=== PATIENT | female | born 1955 | race Caucasian/White ===

== ENCOUNTER 2016-08-29 04:26 | Emergency (ER) | payer MEDICAID, OTHER ==
[~2016-08-29] VITALS: Ht 162.6 cm; Wt 85.5 kg
[~2016-08-29 04:26] MED LIST: ALBU8.5H3 INH; DILT180C75 PO; DILT180C76 PO
[2016-08-29 04:33] VITALS: Ht 162.6 cm; Wt 85.5 kg
[2016-08-29] MEDS ORDERED: IPRATROPIUM (NEB) 0.5 MG/2.5 ML AMP NEB STA (04:48)
[2016-08-29] MEDS ORDERED: METHYLPREDNISOLONE 125 MG INJ IM STA (04:48)
[2016-08-29] MEDS ORDERED: ALBUTEROL 0.5% (NEB) 2.5 MG/0.5 ML AMP INH STA (04:48)
--- NOTE | 2016-08-29 05:10 | ERD ---
ER Documentation Chief Complaint Date/Time DATE: 08/29/16 TIME: 05:08 Chief Complaint sob/asthma x 1 week. HPI 61-year-old female presents here in emergency department for complaints of wheezing cough for 1 week. Patient has history of asthma. Patient has not been using her inhaler, ran out of it. Patient has been having dry cough, does not cough up any phlegm or blood. Patient denies any chest or palpitations. Patient denies any fever or chills. Patient denies any dyspnea on exertion or dyspnea on lying down. Patient denies any dizziness. ROS All systems reviewed and are negative except as per history of present illness. Medications Home Meds Active Scripts Prednisone* (Prednisone*) 50 Mg Tablet, 50 MG PO DAILY, #5 TAB Prov:FOUZIA LIANG NP 08/29/16 Cetirizine Hcl* (Zyrtec*) 10 Mg Capsule, 10 MG PO DAILY, #30 TAB.CHEW Prov:FOUZIA LIANG NP 08/29/16 Dipbptqpozh-E-Excggkuazh Hb* (Guaifenesin* DM Syrup) 120 Ml Syrup, 10 ML PO Q4H Y for COUGH, #120 ML Prov:FOUZIA LIANG NP 08/29/16 Albuterol Sulfate* (Proair HFA*) 8.5 Gm Hfa.aer.ad, 2 PUFF INH Q4H Y for WHEEZING AND SOB, #1 INHALER Prov:FOUZIA LIANG NP 08/29/16 Diltiazem Hcl* (Cardizem CD*) 180 Mg Cap.sr.24h, 180 MG PO DAILY, #60 CAP Prov:SANTHOSH REDD 03/05/15 Albuterol Sulfate* (Proair HFA*) 8.5 Gm Hfa.aer.ad, 2 PUFF INH Q4 Y for SHORTNESS OF BREATH for 30 Days, INH Prov:CHRISTY MALDONADO NP 05/28/14 Reported Medications Diltiazem Hcl* (Tiazac) 180 Mg Capsule.sa, 180 MG PO DAILY, CAP 02/28/15 Allergies Allergies: Coded Allergies: No Known Drug Allergies (Verified Allergy, Unknown, 08/29/16) PMhx/Soc Anesthesia Reaction: No Hx Neurological Disorder: No Hx Respiratory Disorders: Yes (asthma) Hx Cardiac Disorders: Yes (htn, atrial fibrilation) Hx Psychiatric Problems: No Hx Miscellaneous Medical Probl: No Hx Alcohol Use: No Hx Substance Use: No Hx Tobacco Use: No Smoking Status: Never smoker FmHx Family History: No coronary disease, No diabetes, No other Physical Exam Vitals Vital Signs Date Time Temp Pulse Resp B/P Pulse Ox O2 Delivery O2 Flow Rate FiO2 08/29/16 05:05 70 20 96 21 08/29/16 04:33 98.7 72 20 145/70 97 Physical Exam GENERAL: The patient is well developed and appropriate for usual state of health, in no apparent distress. CHEST: Diffuse wheezing bilaterally. There are no crackles, radical or rhonchi. HEART: Regular rate and rhythm. No murmurs, clicks, rubs or gallops. No S3 or S4. ABDOMEN: Soft, nontender and nondistended. Good bowel sounds. No rebound or guarding. No gross peritonitis. No gross organomegaly or masses. No Hansen sign or McBurney point tenderness. BACK: No midline or flank tenderness. EXTREMITIES: Equal pulses bilaterally. There is no peripheral clubbing, cyanosis or edema. No focal swelling or erythema. Full range of motion. Grossly neurovascularly intact. NEURO: Alert and oriented. Cranial nerves 2-12 intact. Motor strength in all 4 extremities with 5/5 strength. Sensation grossly intact. Normal speech and gait. SKIN: There is no apparent rash or petechia. The skin is warm and dry. HEMATOLOGIC AND LYMPHATIC: There is no evidence of excessive bruising or lymphedema. No gross cervical, axillary, or inguinal lymphadenopathy. Results 24 hrs Current Medications Medications (Trade) Dose Ordered Sig/Ed Route PRN Reason Start Time Stop Time Status Last Admin Dose Admin Ipratropium [place] (Atrovent 0.02% (Neb)) 0.5 mg ONCE STAT NEB 08/29/16 04:48 08/29/16 04:49 DC 08/29/16 05:05 Albuterol (Proventil 0.5% (Neb)) 10 mg ONCE STAT INH 08/29/16 04:48 08/29/16 04:50 DC 08/29/16 05:05 Methylprednisolone Sodium Succinate (Solu-Medrol) 125 mg ONCE STAT IM 08/29/16 04:48 3/12/17 04:50 DC Breathing treatment of albuterol and Atrovent was given here in emergency department, after treatment, patient's lungs sounds are clear and patient's oxygenation is better. Patient verbalized feeling much better. Solu-Medrol IM injection PROCEDURE: XR Chest. CLINICAL INDICATION: Asthma exacerbation TECHNIQUE: Portable single view of the chest COMPARISON: 02/28/2015 FINDINGS: Again seen is mild cardiomegaly. The lungs do not appear significantly hyperinflated. No focal infiltrate or pleural effusion is seen. Minimal scar or subsegmental atelectasis of the lateral left lung is seen. Trace fluid in the minor fissure. Degenerative change of the spine. IMPRESSION: Cardiomegaly. No definite acute infiltrate. RPTAT: HLBE Carolina Arias Physician Date Time Electronically viewed and signed by Carolina Arias Physician on 08/29/2016 05 :30 LE/ CC: FOUZIA LIANG STRE[address] DEPARTMENT DISPATCHER Procedures/MDM Medical Decision Making: Patient symptoms are most likely consistent with acute bronchitis with acute asthma exacerbation. There is low suspicion for Pneumonia at this time since patients lungs sounds are clear, patient O2 saturation is normal and patient doesnt show any respiratory distress. Patients chest xray doesnt show infiltrates or any other cardiopulmonary emergencies at this time. There is low suspicion for other cardiopulmonary emergencies at this time such as CHF, Pulmonary Embolism, Pneumothorax, Aortic Aneurysm or any other cardiopulmonary emergencies at this time. There is low suspicion for sepsis. Patient appears well and is hemodynamically stable. She does not have any fever. Disposition: Home. Condition: Stable Prescriptions: Albuterol, prednisone, Zyrtec, guaifenesin DM Instructions: Patient is advised to take medications as prescribed. Patient is advised to rest. Patient advised to increase fluid intake, do humidifier at home and if possible, do salt water gargles. Patient is advised that if symptoms are worse, shortness of breath, uncontrolled fever, stridor, vomiting, worst signs and symptoms to return to emergency department immediately. Otherwise, patient is advised to follow up with primary doctor in 5-7 days. Departure Diagnosis: Primary Impression: Asthma with acute exacerbation Asthma severity: unspecified severity Qualified Code: J45.901 - Asthma with acute exacerbation, unspecified asthma severity Additional Impression: Acute bronchitis Bronchitis organism: unspecified organism Qualified Code: J20.9 - Acute bronchitis, unspecified organism Condition: Stable Patient Instructions: Bronchitis With Wheezing (Adult) Additional Instructions: Patient is advised to take medications as prescribed. Patient is advised to rest. Patient advised to increase fluid intake, do humidifier at home and if possible, do salt water gargles. Patient is advised that if symptoms are worse, shortness of breath, uncontrolled fever, stridor, vomiting, worst signs and symptoms to return to emergency department immediately. Otherwise, patient is advised to follow up with primary doctor in 5-7 days. FOUZIA LIANG NP Aug 29, 2016 05:10
--- NOTE | 2016-08-29 05:30 | RADRPT ---
PROCEDURE: XR Chest. CLINICAL INDICATION: Asthma exacerbation TECHNIQUE: Portable single view of the chest COMPARISON: 02/28/2015 FINDINGS: Again seen is mild cardiomegaly. The lungs do not appear significantly hyperinflated. No focal inf iltrate or pleural effusion is seen. Minimal scar or subsegmental atelectasis of the lateral left l zeinab is seen. Trace fluid in the minor fissure. Degenerative change of the spine. IMPRESSION: Cardiomegaly. No definite acute infiltrate. RPTAT: HLBE Carolina Arias Physician Date Time Electronically viewed and signed by Carolina Arias Physician on 08/29/2016 05:30 LE/
[2016-08-29] MEDS ORDERED: GUAI120S26 PO (05:37)
[2016-08-29] MEDS ORDERED: ALBU8.5H3 INH (05:37)
[2016-08-29] MEDS ORDERED: CETI10CA PO (05:37)
[2016-08-29] MEDS ORDERED: PRED50TA PO (05:37)
[2016-08-29 06:28] VITALS: BP 149/70; PULSE 74; RESP 18; TEMP 98
== END 2016-08-29 06:33 | disposition home or self-care (01) ==
LOC: FTE 04:26
DX: J45.901 Unspecified asthma with (acute) exacerbation (principal); J20.9 Acute bronchitis, unspecified; I10 Essential (primary) hypertension
CPT/HCPCS: 71010; 94644; 96372; J2930; Z7502; Z7610

== ENCOUNTER 2016-09-08 19:31 | Emergency (ER) | payer MEDICAID ==
[~2016-09-08] VITALS: Ht 152.4 cm; Wt 86.0 kg
[~2016-09-08 19:31] MED LIST changes: +CETI10CA PO; +GUAI120S26 PO; +PRED50TA PO
[2016-09-08 20:35] VITALS: Ht 152.4 cm; Wt 86.0 kg
[2016-09-08] MEDS ORDERED: AMO500 PO (20:41)
[2016-09-08] MEDS ORDERED: IBUP-1542 PO (20:41)
[2016-09-08] MEDS ORDERED: ALBU2.5V3 NEB (20:41)
--- NOTE | 2016-09-08 20:47 | ERD ---
ER Documentation Chief Complaint Date/Time DATE: 09/08/16 TIME: 20:[address] x3 days HPI 61-year-old female presents here in emergency department for complaint of sore throat for 3 days. Patient's complaint of sore throat, burning pain, 6/10 scale , is worse upon swallowing. Patient denies any stridor or shortness breath. Patient denies any fever or chills. Patient did not take any medications to help with symptoms. Patient also wants a refill of her albuterol Nebules. Patient does not have any wheezing at this time. Patient's symptoms of asthma is controlled per patient. ROS All systems reviewed and are negative except as per history of present illness. Medications Home Meds Active Scripts Ibuprofen* (Motrin*) 600 Mg Tab, 600 MG PO Q6H Y for PAIN AND OR ELEVATED TEMP, #30 TAB Prov:FOUZIA LIANG NP 09/08/16 Amoxicillin* (Amoxicillin*) 500 Mg Cap, 500 MG PO TID for 10 Days, CAP Prov:FOUZIA LIANG NP 09/08/16 Albuterol Sulfate* (Albuterol Sulfate* Neb) 0.083%-3 Ml Neb, 2.5 MG NEB Q4 Y for SHORTNESS OF BREATH, #30 EA Prov:FOUZIA LIANG NP 09/08/16 Prednisone* (Prednisone*) 50 Mg Tablet, 50 MG PO DAILY, #5 TAB Prov:FOUZIA LIANG NP 08/29/16 Cetirizine Hcl* (Zyrtec*) 10 Mg Capsule, 10 MG PO DAILY, #30 TAB.CHEW Prov:FOUZIA LIANG NP 08/29/16 Ukrenwjfypm-O-Pixoknxnss Hb* (Guaifenesin* DM Syrup) 120 Ml Syrup, 10 ML PO Q4H Y for COUGH, #120 ML Prov:FOUZIA LIANG NP 08/29/16 Albuterol Sulfate* (Proair HFA*) 8.5 Gm Hfa.aer.ad, 2 PUFF INH Q4H Y for WHEEZING AND SOB, #1 INHALER Prov:FOUZIA LIANG NP 08/29/16 Diltiazem Hcl* (Cardizem CD*) 180 Mg Cap.sr.24h, 180 MG PO DAILY, #60 CAP Prov:SANTHOSH REDD 03/05/15 Albuterol Sulfate* (Proair HFA*) 8.5 Gm Hfa.aer.ad, 2 PUFF INH Q4 Y for SHORTNESS OF BREATH for 30 Days, INH Prov:CHRISTY MALDONADO DIRECTOR 05/28/14 Reported Medications Diltiazem Hcl* (Tiazac) 180 Mg Capsule.sa, 180 MG PO DAILY, CAP 02/28/15 Allergies Allergies: Coded Allergies: No Known Drug Allergies (Verified Allergy, Unknown, 08/29/16) PMhx/Soc Anesthesia Reaction: No Hx Neurological Disorder: No Hx Respiratory Disorders: Yes (asthma) Hx Cardiac Disorders: Yes (htn, atrial fibrilation) Hx Psychiatric Problems: No Hx Miscellaneous Medical Probl: No Hx Alcohol Use: No Hx Substance Use: No Hx Tobacco Use: No FmHx Family History: No coronary disease, No diabetes, No other Physical Exam Vitals Vital Signs Date Time Temp Pulse Resp B/P Pulse Ox O2 Delivery O2 Flow Rate FiO2 09/08/16 20:35 99.7 76 18 158/74 97 Physical Exam GENERAL: The patient is well developed and appropriate for usual state of health, in no apparent distress. HEENT: Atraumatic. Ears: Normal tympanic membrane, no erythema or bulging. No ear canal swelling. No ear discharge. Nose: normal nasal turbinates, no erythema or swelling. Normal nasal discharge. Throat: oropharynx are erythematous with +1 tonsillar swelling and Tonsillar Exudate Noted. No lymphadenopathy. CHEST: Clear to auscultation bilaterally. There are no rales, wheezes or rhonchi. HEART: Regular rate and rhythm. No murmurs, clicks, rubs or gallops. No S3 or S4. ABDOMEN: Soft, nontender and nondistended. Good bowel sounds. No rebound or guarding. No gross peritonitis. No gross organomegaly or masses. No Hansen sign or McBurney point tenderness. BACK: No midline or flank tenderness. EXTREMITIES: Equal pulses bilaterally. There is no peripheral clubbing, cyanosis or edema. No focal swelling or erythema. Full range of motion. Grossly neurovascularly intact. NEURO: Alert and oriented. Cranial nerves 2-12 intact. Motor strength in all 4 extremities with 5/5 strength. Sensation grossly intact. Normal speech and gait. SKIN: There is no apparent rash or petechia. The skin is warm and dry. HEMATOLOGIC AND LYMPHATIC: There is no evidence of excessive bruising or lymphedema. No gross cervical, axillary, or inguinal lymphadenopathy Procedures/MDM Medical decision making: Patient's symptoms are likely consistent with acute bacterial pharyngitis, possibly strep throat. No symptoms of oral airway obstruction, no stridor, no symptoms of peritonsillar abscess. Patient was given for amoxicillin, ibuprofen, also given a refill of her albuterol nebules, at this time, no wheezing episode, no acute asthma exacerbation noted. Patient was advised to follow-up with primary care doctor in 2-3 days for reevaluation of symptoms, drink a lot of water, but wanted gargles and rest. Patient is advised to return to emergency department for any worsening s/s Departure Diagnosis: Primary Impression: Acute bacterial pharyngitis Additional Impression: Encounter for medication refill Condition: Stable Patient Instructions: Pharyngitis, Strep (Presumed) FOUZIA LIANG NP Sep 08, 2016 20:47
== END 2016-09-08 20:43 | disposition home or self-care (01) ==
LOC: E/R 19:31
DX: J02.8 Acute pharyngitis due to other specified organisms (principal); B96.89 Other specified bacterial agents as the cause of diseases classified elsewhere; I10 Essential (primary) hypertension; J45.909 Unspecified asthma, uncomplicated; Z76.0 Encounter for issue of repeat prescription
CPT/HCPCS: 99284

== ENCOUNTER 2016-11-15 03:01 | Emergency (ER) | payer MEDICAID ==
[~2016-11-15] VITALS: Ht 154.9 cm; Wt 85.0 kg
[~2016-11-15 03:01] MED LIST changes: +ALBU2.5V3 NEB; +AMO500 PO; +DILT180C94 PO; +IBUP-1542 PO; +LEVO750T25 PO; +NASO17 NASAL; +TYL500 PO
[2016-11-15 03:12] VITALS: Ht 154.9 cm; Wt 85.0 kg
--- NOTE | 2016-11-15 04:21 | ERA ---
ER Documentation Chief Complaint Date/Time DATE: 11/15/16 TIME: 04:21 Chief Complaint Pt recent dx of bronchitis and still wheezing HPI The patient is a 61-year-old female, presenting to the ER because of wheezing.. She was in the ER approximately 6 days ago and treated for bronchitis with Levaquin. She is not getting much better, denies fever, chills, neck pain, chest pain, abdominal pain, dysuria, diarrhea. She does not smoke or drink Medical history: Asthma, hypertension, history of atrial fibrillation Past surgical history: ROS All systems reviewed and are negative except as per history of present illness. Medications Home Meds Active Scripts Albuterol Sulfate* (Proair HFA*) 8.5 Gm Hfa.aer.ad, 2 PUFF INH Q4H Y for WHEEZING AND SOB, #1 INHALER Prov:EWA MACKENZIE MD 11/15/16 Prednisone* (Prednisone*) 20 Mg Tab, 60 MG PO DAILY for 5 Days, TAB Prov:EWA MACKENZIE MD 11/15/16 Guaifenesin-Codeine Phosphate* (Robitussin* AC) 5 Ml Syrup, 10 ML PO Q6H Y for COUGH, #120 ML Prov:EWA MACKENZIE MD 11/15/16 Levofloxacin* (Levaquin*) 750 Mg Tablet, 750 MG PO DAILY for 5 Days, TAB Prov:EWA MACKENZIE MD 11/15/16 Acetaminophen* (Tylenol*) 500 Mg Tab, 500 MG PO Q4H Y for MILD PAIN LEVEL 1-3 for 3 Days, TAB Prov:CRISTIANE MOORE 11/09/16 Diltiazem Hcl* (Diltiazem XT) 180 Mg Capsule.er, 180 MG PO DAILY, #90 CAP Prov:CRISTIANE MOORE 11/09/16 Mometasone Furoate* (Nasonex*) 50 Mcg/[place] - 17 Gm [place].pump, 2 SPRAY NASAL BID, #1 BOTTLE TO EACH NOSTRIL Prov:CRISTIANE MOORE 11/09/16 Levofloxacin* (Levaquin*) 750 Mg Tablet, 750 MG PO DAILY for 5 Days, TAB Prov:CRISTIANE MOORE 11/09/16 Ibuprofen* (Motrin*) 600 Mg Tab, 600 MG PO Q6H Y for PAIN AND OR ELEVATED TEMP, #30 TAB Prov:CUISIA,FOUZIA [employer] [employer] OPERATIONS MANAGER 09/08/16 Amoxicillin* (Amoxicillin*) 500 Mg Cap, 500 MG PO TID for 10 Days, CAP Prov:FOUZIA LIANG NP 09/08/16 Albuterol Sulfate* (Albuterol Sulfate* Neb) 0.083%-3 Ml Neb, 2.5 MG NEB Q4 Y for SHORTNESS OF BREATH, #30 EA Prov:FOUZIA LIANG AIRPORT OPERATIONS MANAGER 09/08/16 Prednisone* (Prednisone*) 50 Mg Tablet, 50 MG PO DAILY, #5 TAB Prov:FOUZIA LIANG NP 08/29/16 Cetirizine Hcl* (Zyrtec*) 10 Mg Capsule, 10 MG PO DAILY, #30 TAB.CHEW Prov:FOUZIA LIANG NP 08/29/16 Iffmozdheav-C-Uuydiacidx Hb* (Guaifenesin* DM Syrup) 120 Ml Syrup, 10 ML PO Q4H Y for COUGH, #120 ML Prov:FOUZIA LIANG NP 08/29/16 Albuterol Sulfate* (Proair HFA*) 8.5 Gm Hfa.aer.ad, 2 PUFF INH Q4H Y for WHEEZING AND SOB, #1 INHALER Prov:FOUZIA LIANG NP 08/29/16 Diltiazem Hcl* (Cardizem CD*) 180 Mg Cap.sr.24h, 180 MG PO DAILY, #60 CAP Prov:SANTHOSH REDD 03/05/15 Albuterol Sulfate* (Proair HFA*) 8.5 Gm Hfa.aer.ad, 2 PUFF INH Q4 Y for SHORTNESS OF BREATH for 30 Days, INH Prov:CHRISTY MALDONADO AIRPORT OPERATIONS MANAGER 05/28/14 Reported Medications Diltiazem Hcl* (Tiazac) 180 Mg Capsule.sa, 180 MG PO DAILY, CAP 02/28/15 Allergies Allergies: Coded Allergies: No Known Drug Allergies (Verified Allergy, Unknown, 08/29/16) PMhx/Soc Anesthesia Reaction: No Hx Neurological Disorder: No Hx Respiratory Disorders: Yes (asthma, bronchitis) Hx Cardiac Disorders: Yes (htn, atrial fibrilation post conversion) Hx Psychiatric Problems: No Hx Miscellaneous Medical Probl: No Hx Alcohol Use: No Hx Substance Use: No Hx Tobacco Use: No Smoking Status: Never smoker Physical Exam Vitals Vital Signs Date Time Temp Pulse Resp B/P Pulse Ox O2 Delivery O2 Flow Rate FiO2 11/15/16 06:11 86 22 126/81 100 Room Air 11/15/16 05:56 82 19 132/82 98 Room Air 11/15/16 05:54 83 20 93 21 11/15/16 05:42 81 22 132/82 95 Room Air 11/15/16 04:55 87 20 97 21 11/15/16 03:12 98.9 96 20 141/71 94 Physical Exam Const: No acute distress. Head: Atraumatic. Eyes: Normal Conjunctiva. ENT: Normal External Ears, Nose and Mouth. Neck: Full range of motion. No meningismus. Resp: Bilateral expiratory wheezes Cardio: Regular rate and rhythm, no murmurs. Abd: Soft, non distended, normal bowel sounds, non tender. Skin: No petechiae or rashes. Back: No midline or flank tenderness. Ext: No cyanosis, or edema. Neur: Awake and alert. No focal deficit Psych: Normal Mood and Affect. Results 24 hrs Laboratory Tests Test 11/15/16 05:36 Blood Gas Specimen Source Blood arterial Arterial Blood Date Drawn 11/15/2016 5:55:46 AM Arterial Blood pH (Temp corrected) 7.440 Arterial Blood pCO2 (Temp correct) 31.6mmhg Arterial Blood pO2 (Temp corrected) 69.2mmHG Arterial Blood HCO3 21.0mmol/L Arterial Blood Base Excess -2.3mmol/L Arterial Blood Oxygen Saturation 93.2mmHG Carl Test ACCEPTAB Arterial Blood Gas Puncture Site Right Brachial Arterial Blood Carboxyhemoglobin 0.3% Arterial Blood Methemoglobin 0.3% Blood Gas A-a O2 Differential 42.7mmHg Oxyhemoglobin Percent 92.6% Total Hemoglobin 13.0g/dl Blood Gas Temperature 37.0C Blood Gas Modality ROOM AIR FiO2 21.0% Blood Gas Notified Whom MG Blood Gas Notified Time 11/15/2016 6:00:14 AM Current Medications Medications (Trade) Dose Ordered Sig/Ed Route PRN Reason Start Time Stop Time Status Last Admin Dose Admin Methylprednisolone Sodium Succinate (Solu-Medrol) 125 mg ONCE ONCE IV 11/15/16 04:30 5/29/17 04:33 DC 11/15/16 04:38 Levalbuterol (Xopenex Neb) 1.25 mg ONCE ONCE HHN 11/15/16 04:30 11/15/16 04:33 DC 11/15/16 04:55 Ipratropium [place] (Atrovent 0.02% (Neb)) 0.5 mg ONCE ONCE HHN 11/15/16 04:30 11/15/16 04:33 DC 11/15/16 04:55 Ondansetron HCl (Zofran Inj) 4 mg ONCE STAT IV 11/15/16 04:42 11/15/16 04:43 DC Levalbuterol (Xopenex Hfa) 1 puff ONCE ONCE INH 11/15/16 06:00 11/15/16 06:00 DC Ipratropium [place] (Atrovent 0.02% (Neb)) 0.5 mg ONCE ONCE HHN 11/15/16 06:00 11/15/16 06:01 DC 11/15/16 05:53 Levalbuterol (Xopenex Neb) 1.25 mg ONCE ONCE HHN 11/15/16 06:00 11/15/16 06:01 DC 11/15/16 05:53 Procedures/[place] [address] Radiology Main Line: [phone] DIAGNOSTIC IMAGING REPORT Patient: BEAR GUTHRIE : 1955 Age: 61 Sex: F MR #: [id number] DOS: 11/15/16 0000 Ordering MD: WEA MACKENZIE MD Location: E/R Room/Bed: PROCEDURE: CHEST - 1 VIEW CLINICAL INDICATION: 61-year-old female with cough. TECHNIQUE: A single frontal AP portable view of the chest was performed. The images were reviewed on a PACS workstation. COMPARISON: Chest x-ray August 29, 2016. FINDINGS: The cardiomediastinal silhouette is mildly enlarged but without significant interval change. There is no evidence for an infiltrate. There is no evidence for congestive heart failure. There is no evidence for pneumothorax. The osseous structures are intact. IMPRESSION: 1. Cardiomegaly. 2. No evidence for active cardiopulmonary disease. .Loco Finn MD, Date Time Electronically viewed and signed by .Looc Finn MD, on 11/15/2016 08:01 .M/ CC: EWA MACKENZIE MD EKG: Read by emergency physician Rate/Rhythm: Normal Sinus Rhythm 90 beats/min QRS, ST, T-waves: No ST elevation, no T inversion Impression: Normal EKG MEDICAL MAKING DECISION: The patient is a 71-year-old female, presenting with acute asthma exacerbation. She was treated with Xopenex 1.25 mg 2 and Atrovent 0.5 mg 2 and Solu-Medrol 125 IV for wheezing with good response. ABG was adequate. She is stable for outpatient follow-up The differential diagnoses considered include but are not limited to asthma, COPD, pneumonia, pulmonary embolus, pleural effusion, congestive heart failure. Departure Diagnosis: Primary Impression: Asthma exacerbation Condition: Good Comments He was discharged with 5 more days of Levaquin because he only had 5 days previously, prednisone, albuterol MDI, Phenergan with codeine I discussed the findings with the patient. I advised the patient to follow-up with the primary physician in about 1-2 days, sooner if needed and return if any concern. EWA MACKENZIE MD November 15, 2016 04:21
[2016-11-15] MEDS ORDERED: LEVALBUTEROL (NEB) 1.25 MG/0.5 ML AMP HHN ONE ×2 (04:30→06:00)
[2016-11-15] MEDS ORDERED: IPRATROPIUM (NEB) 0.5 MG/2.5 ML AMP HHN ONE ×2 (04:30→06:00)
[2016-11-15] MEDS ORDERED: METHYLPREDNISOLONE 125 MG INJ IV ONE (04:30)
[2016-11-15] MEDS ORDERED: ONDANSETRON 4 MG INJ IV STA (04:42)
[2016-11-15 06:00] LABS: AADO2 Arterial 42.7 mmHg (7.0-24.0); Allen Test ACCEPTAB; Arterial Base Excess -2.3 mmol/L (-3.0-3); Arterial COHb 0.3 % (0.0-3.0); Arterial Fraction of Oxyhgb 92.6 % (93.0-99.0); Arterial MetHb 0.3 % (0.0-1.5); MODE ROOM AIR
[2016-11-15] MEDS ORDERED: LEVALBUTEROL (HFA) 15 GM INHALER INH ONE (06:00)
[2016-11-15] MEDS ORDERED: LEVO750T25 PO (06:06)
[2016-11-15] MEDS ORDERED: PRED20TA PO (06:07)
[2016-11-15] MEDS ORDERED: UDROBAC PO (06:07)
[2016-11-15] MEDS ORDERED: ALBU8.5H3 INH (06:09)
[2016-11-15 06:11] VITALS: BP 126/81; PULSE 86; RESP 22
--- NOTE | 2016-11-15 08:01 | RADRPT ---
PROCEDURE: CHEST - 1 VIEW CLINICAL INDICATION: 61-year-old female with cough. TECHNIQUE: A single frontal AP portable view of the chest was performed. The images were reviewed on a PACS workstation. COMPARISON: Chest x-ray August 29, 2016. FINDINGS: The cardiomediastinal silhouette is mildly enlarged but without significant interval change. There is no evidence for an infiltrate. There is no evidence for congestive heart failure. There is no ev idence for pneumothorax. The osseous structures are intact. IMPRESSION: 1. Cardiomegaly. 2. No evidence for active cardiopulmonary disease. .Loco Finn MD, Date Time Electronically viewed and signed by .Loco Finn MD, on 11/15/2016 08:01 .Con/
== END 2016-11-15 06:32 | disposition home or self-care (01) ==
LOC: E/R 03:01
DX: J45.901 Unspecified asthma with (acute) exacerbation (principal); I10 Essential (primary) hypertension
CPT/HCPCS: 36600; 71010; 82803; 93005; 94640; 94664; 96374; J2405; J2930; Z7502; Z7610

== ENCOUNTER 2017-04-08 22:52 | Emergency (ER) | payer MEDICAID ==
[~2017-04-08] VITALS: Ht 160 cm; Wt 84.0 kg
[~2017-04-08 22:52] MED LIST changes: -AMO500 PO; +AMOX500C2 PO; +PRED20TA PO; +UDROBAC PO
[2017-04-09 00:44] VITALS: Ht 160 cm; Wt 84.0 kg
[2017-04-09] MEDS ORDERED: ALBUTEROL 0.5% (NEB) 2.5 MG/0.5 ML AMP NEB STA (03:22)
[2017-04-09] MEDS ORDERED: IPRATROPIUM (NEB) 0.5 MG/2.5 ML AMP NEB STA (03:22)
[2017-04-09] MEDS ORDERED: DEXAMETHASONE 10 MG/ML 1 ML INJ IM ONE (03:30)
--- NOTE | 2017-04-09 05:11 | RADRPT ---
PROCEDURE: CHEST - 1 VIEW CLINICAL INDICATION: 61-year-old female with shortness of breath and asthma exacerbation. TECHNIQUE: A single frontal AP portable view of the chest was performed. The images were reviewed on a PACS workstation. COMPARISON: Chest x-ray August 29, 2016; chest x-ray September 15, 2016. FINDINGS: The cardiomediastinal silhouette is mildly enlarged but without significant interval change. There i s mild elevation and eventration of the right hemidiaphragm. There is no evidence for an infiltrate . There is no evidence for congestive heart failure. There is no evidence for pneumothorax. The oss eous structures are intact. IMPRESSION: No evidence for active cardiopulmonary disease. .Loco Finn MD, MD Date Time Electronically viewed and signed by .Loco Finn MD, on 04/09/2017 05:10 ./
[2017-04-09] MEDS ORDERED: ALBU18HF INHALATION (05:18)
[2017-04-09] MEDS ORDERED: BENZ100C70 PO (05:18)
[2017-04-09] MEDS ORDERED: ALBU2.5V3 NEB (05:18)
[2017-04-09] MEDS ORDERED: DILT180C81 PO (05:18)
[2017-04-09] MEDS ORDERED: AZIT250T94 PO (05:29)
--- NOTE | 2017-04-09 05:34 | ERD ---
ER Documentation Chief Complaint Chief Complaint cough w/ chest congestion HPI 61-year-old female patient with no significant past medical history presents to the ED complaining of cough and congestion that started 3 days ago. Patient reports that she feels like she is wheezing and has slight shortness of breath. Denies any chest pain, fever, chills, nausea, vomiting, diarrhea, abdominal pain. Reports that she tried using her nebulizing solution at home which did not relieve her pain. ROS All systems reviewed and are negative except as per history of present illness. Medications Home Meds Active Scripts Azithromycin* (Zithromax*) 250 Mg Tablet, 250 MG PO .ZPACK DIRECTED, #6 TAB TAKE 500 MG (2 TABS) THE FIRST DAY THEN 250 MG (1 TAB) DAYS 2-5 Prov:KONG SADLER PA-C 04/09/17 Albuterol Sulfate* (Ventolin HFA*) 18 Gm Hfa.aer.ad, 2 PUFF INHALATION Q4H, #1 INHALER Prov:KONG SADLER PA-C 04/09/17 Albuterol Sulfate* (Albuterol Sulfate* Neb) 0.083%-3 Ml Neb, 2.5 MG NEB Q4 Y for SHORTNESS OF BREATH, #30 EA Prov:KONG SADLER PA-C 04/09/17 Diltiazem Hcl (DILTIAZEM 24HR CD) 180 Mg Cap.er.24h, 180 MG PO DAILY, #30 CAP Prov:KONG SADLER PA-C 04/09/17 Albuterol Sulfate* (Proair HFA*) 8.5 Gm Hfa.aer.ad, 2 PUFF INH Q4H Y for WHEEZING AND SOB, #1 INHALER Prov:EWA MACKENZIE MD 11/15/16 Prednisone* (Prednisone*) 20 Mg Tab, 60 MG PO DAILY for 5 Days, TAB Prov:EWA MACKENZIE MD 11/15/16 Guaifenesin-Codeine Phosphate* (Robitussin* AC) 5 Ml Syrup, 10 ML PO Q6H Y for COUGH, #120 ML Prov:EWA MACKENZIE MD 11/15/16 Levofloxacin* (Levaquin*) 750 Mg Tablet, 750 MG PO DAILY for 5 Days, TAB Prov:EWA MACKENZIE MD 5/29/17 Acetaminophen* (Tylenol*) 500 Mg Tab, 500 MG PO Q4H Y for MILD PAIN LEVEL 1-3 for 3 Days, TAB Prov:OSCAR,CRISTIANE C 11/09/16 Diltiazem Hcl* (Diltiazem XT) 180 Mg Capsule.er, 180 MG PO DAILY, #90 CAP Prov:LEANDRO MOORETANVI Alcocer 11/09/16 Mometasone Furoate* (Nasonex*) 50 Mcg/[place] - 17 Gm [place].pump, 2 SPRAY NASAL BID, #1 BOTTLE TO EACH NOSTRIL Prov:OSCARCRISTIANE 11/09/16 Levofloxacin* (Levaquin*) 750 Mg Tablet, 750 MG PO DAILY for 5 Days, TAB Prov:OSCARCRISTIANE 11/09/16 Ibuprofen* (Motrin*) 600 Mg Tab, 600 MG PO Q6H Y for PAIN AND OR ELEVATED TEMP, #30 TAB Prov:FOUZIA LIANG NP 09/08/16 Amoxicillin* (Amoxicillin*) 500 Mg Cap, 500 MG PO TID for 10 Days, CAP Prov:FOUZIA LIANG NP 09/08/16 Albuterol Sulfate* (Albuterol Sulfate* Neb) 0.083%-3 Ml Neb, 2.5 MG NEB Q4 Y for SHORTNESS OF BREATH, #30 EA Prov:FOUZIA LIANG NP 09/08/16 Prednisone* (Prednisone*) 50 Mg Tablet, 50 MG PO DAILY, #5 TAB Prov:FOUZIA LIANG NP 08/29/16 Cetirizine Hcl* (Zyrtec*) 10 Mg Capsule, 10 MG PO DAILY, #30 TAB.CHEW Prov:FOUZIA LIANG NP 08/29/16 Fbuytbybljz-D-Sxbyfnxwre Hb* (Guaifenesin* DM Syrup) 120 Ml Syrup, 10 ML PO Q4H Y for COUGH, #120 ML Prov:FOUZIA LIANG NP 08/29/16 Albuterol Sulfate* (Proair HFA*) 8.5 Gm Hfa.aer.ad, 2 PUFF INH Q4H Y for WHEEZING AND SOB, #1 INHALER Prov:FOUZIA LIANG NP 08/29/16 Diltiazem Hcl* (Cardizem CD*) 180 Mg Cap.sr.24h, 180 MG PO DAILY, #60 CAP Prov:SANTHOSH REDD 03/05/15 Albuterol Sulfate* (Proair HFA*) 8.5 Gm Hfa.aer.ad, 2 PUFF INH Q4 Y for SHORTNESS OF BREATH for 30 Days, INH Prov:CHRISTY MALDONADO ASSISTANT ATHLETIC TRAINER 05/28/14 Reported Medications Diltiazem Hcl* (Tiazac) 180 Mg Capsule.sa, 180 MG PO DAILY, CAP 02/28/15 Allergies Allergies: Coded Allergies: No Known Drug Allergies (Verified Allergy, Unknown, 08/29/16) PMhx/Soc History of Surgery: Yes () Anesthesia Reaction: No Hx Neurological Disorder: No Hx Respiratory Disorders: Yes (Asthma) Hx Cardiac Disorders: Yes (HTN, Palpitations) Hx Psychiatric Problems: No Hx Miscellaneous Medical Probl: No Hx Alcohol Use: No Hx Substance Use: No Hx Tobacco Use: No Smoking Status: Current every day smoker Physical Exam Vitals Vital Signs Date Time Temp Pulse Resp B/P Pulse Ox O2 Delivery O2 Flow Rate FiO2 04/09/17 03:48 96 20 99 21 04/09/17 00:44 97.8 71 20 164/80 97 Physical Exam Const: Auw-cuo-fpvfcwmkb, well-nourished. In no acute distress. Head: Atraumatic, normocephalic Eyes: Normal Conjunctiva without injection. No purulent discharge. PERRL. EOMI ENT: Normal external ear. Ear canal without erythema. Tympanic membrane pearly rubio without effusion or bulging. Nasal canal clear with normal turbinates. Moist oropharynx without tonsillar exudates. Non-erythematous pharynx. Uvula midline. No drooling. No trismus. Neck: Full range of motion. No meningismus. No cervical lymphadenopathy. Resp: Inspiratory wheezing noted. No rhonchi, rales, or crackles. No accessory muscle use. No retractions. Cardio: Regular rate and rhythm. No murmurs, rubs or gallops. Abd: Soft, non tender, non distended. Normal bowel sounds. No palpable masses. No rebound tenderness. No guarding. Skin: No petechiae or rashes Back: No midline tenderness. No CVA tenderness. Ext: No cyanosis, or edema. Neur: Awake and alert. Psych: Normal Mood and Affect Results 24 hrs Current Medications Medications (Trade) Dose Ordered Sig/Ed Route PRN Reason Start Time Stop Time Status Last Admin Dose Admin Albuterol (Proventil 0.5% (Neb)) 10 mg ONCE STAT NEB 04/09/17 03:22 04/09/17 03:25 DC 04/09/17 03:47 Ipratropium [place] (Atrovent 0.02% (Neb)) 1 mg ONCE STAT NEB 04/09/17 03:22 04/09/17 03:25 DC 04/09/17 03:47 Dexamethasone (Decadron) 10 mg ONCE ONCE IM 04/09/17 03:30 04/09/17 03:31 DC 04/09/17 03:36 Procedures/MDM This is a 61-year-old female patient with a past medical history of hypertension , asthma presents to the ED complaining of cough with congestion and wheezing. Patient is afebrile and nontoxic-appearing. Blood pressure is 164/80. Patient' s blood pressure was elevated (>120/80) but appears stable without evidence of hypertension emergency or urgency. The patient was counseled about the risks of hypertension and urged to pursue outpatient monitoring and therapy within a week with their primary care physician. Patient also is here for a medication refill for diltiazem. CXR was ordered to further evaluate patient. Patient was given a breathing treatment consisting of 5 mg albuterol, 1 mg Atrovent with improvement of her symptoms. PROCEDURE: CHEST - 1 VIEW CLINICAL INDICATION: 61-year-old female with shortness of breath and asthma exacerbation. TECHNIQUE: A single frontal AP portable view of the chest was performed. The images were reviewed on a PACS workstation. COMPARISON: Chest x-ray August 29, 2016; chest x-ray September 15, 2016. FINDINGS: The cardiomediastinal silhouette is mildly enlarged but without significant interval change. There is mild elevation and eventration of the right hemidiaphragm. There is no evidence for an infiltrate. There is no evidence for congestive heart failure. There is no evidence for pneumothorax. The osseous structures are intact. IMPRESSION: No evidence for active cardiopulmonary disease. Patient has been seen here previously for her asthma exacerbations. Patient likely has an asthma exacerbation. Low suspicion for atypical LA, pneumonia, pulmonary embolism, pneumothorax, cardiac tamponade, sinusitis, peritonsillar abscess, mastoiditis, Brenton's angina, retropharyngeal abscess, meningitis, sepsis or other emergent conditions. EKG reviewed and interpreted by Dr. Mackenzie Rate/Rhythm: [70 bpm, Normal Sinus Rhythm] No ectopy, no ST elevations, normal axis. QRS, ST, T-waves: [No changes consistent w/ acute ischemia] Impression: [No evidence of ischemia or arrhythmia] Low suspicion for acute myocardial infarction, pneumothorax, pneumonia, cardiac tamponade, Hilnq-Znrupmtoc-Nvqfr Syndrome, Brugada Syndrome, pulmonary embolism , AAA, aortic dissection, thoracic aortic dissection, endocarditis, pericarditis , cocaine-related ischemia, Boerhaave's syndrome, cardiac dysrhythmias, meningitis, intracranial bleed, seizure, stroke, TIA or other emergent conditions. Patient's respiratory status has stabilized while in the department and is appropriate for outpatient work up. Exam and work up not consistent w/ impending respiratory failure or cardiovascular collapse. Patient speaking in full sentences and verbalized that she feels better. Discharge medications: Zithromax, Ventolin, Albuterol Neb Solution, Diltiazem refill Follow up with primary care physician in 1-2 days. Instructed patient to return to the ED sooner for any worsening symptoms. Patient's questions were answered. Patient understood and agreed with discharge plan. Patient discharged stable. Departure Diagnosis: Primary Impression: Asthma exacerbation Asthma severity: unspecified severity Asthma persistence: unspecified Qualified Code: J45.901 - Exacerbation of asthma, unspecified asthma severity, unspecified whether persistent Additional Impression: Medication refill Condition: Stable Patient Instructions: Taking Medicine Safely, Understanding Asthma Triggers, Asthma, Acute (Adult) Referrals: [facility], [facility] YOU HAVE RECEIVED A MEDICAL SCREENING EXAM AND THE RESULTS INDICATE THAT YOU DO NOT HAVE A CONDITION THAT REQUIRES URGENT TREATMENT IN THE EMERGENCY DEPARTMENT. FURTHER EVALUATION AND TREATMENT OF YOUR CONDITION CAN WAIT UNTIL YOU ARE SEEN IN YOUR DOCTORS OFFICE WITHIN THE NEXT 1-2 DAYS. IT IS YOUR RESPONSIBILITY TO MAKE AN APPOINTMENT FOR FOLOW-UP CARE. IF YOU HAVE A PRIMARY DOCTOR --you should call your primary doctor and schedule an appointment IF YOU DO NOT HAVE A PRIMARY DOCTOR YOU CAN CALL OUR PHYSICIAN REFERRAL HOTLINE AT IF YOU CAN NOT AFFORD TO SEE A PHYSICIAN YOU CAN CHOSE FROM THE FOLLOWING [facility], [facility] [address] [facility] [address] [facility] [address] [facility] [address] [facility] [address] [facility]. [facility] [address] [facility]. [facility] YOU HAVE RECEIVED A MEDICAL SCREENING EXAM AND THE RESULTS INDICATE THAT YOU DO NOT HAVE A CONDITION THAT REQUIRES URGENT TREATMENT IN THE EMERGENCY DEPARTMENT. FURTHER EVALUATION AND TREATMENT OF YOUR CONDITION CAN WAIT UNTIL YOU ARE SEEN IN YOUR DOCTORS OFFICE WITHIN THE NEXT 1-2 DAYS. IT IS YOUR RESPONSIBILITY TO MAKE AN APPOINTMENT FOR FOLOW-UP CARE. IF YOU HAVE A PRIMARY DOCTOR --you should call your primary doctor and schedule and appointment IF YOU DO NOT HAVE A PRIMARY DOCTOR YOU CAN CALL OUR PHYSICIAN REFERRAL HOTLINE AT . IF YOU CAN NOT AFFORD TO SEE A PHYSICIAN YOU CAN CHOSE FROM THE FOLLOWING [facility] INSTITUTIONS: [facility] [address] [place] [address] [facility] [address] [place], [place] [id number] [place] [address] [address] [place] [address] [facility] URGENT CARE/SPECIALTIES Additional Instructions: Llame al doctor MAANA y chuck kacy BENJI PARA DENTRO DE 2-3 ZEPEDA.Dgale a la secretaria que nosotros le instruimos hacer esta benji.Avise o llame si gallagher condicin se empeora antes de la benji. Regresa aqui si peor o no mejor. KONG SADLER PA-C Apr 09, 2017 05:34
[2017-04-09 05:37] VITALS: BP 113/67; PULSE 72; RESP 18; TEMP 98.5
== END 2017-04-09 05:42 | disposition home or self-care (01) ==
LOC: FTE 22:52
DX: J45.901 Unspecified asthma with (acute) exacerbation (principal); I10 Essential (primary) hypertension; F17.210 Nicotine dependence, cigarettes, uncomplicated; Z76.0 Encounter for issue of repeat prescription
CPT/HCPCS: 71010; 93005; 94644; 96372; J1100; Z7502; Z7610

== ENCOUNTER 2017-05-01 13:07 | Emergency (ER) | payer MEDICAID ==
[~2017-05-01] VITALS: Ht 157.5 cm; Wt 84.0 kg
[~2017-05-01 13:07] MED LIST changes: +ALBU18HF INHALATION; +AZIT250T94 PO; +DILT180C81 PO
[2017-05-01 13:12] VITALS: Ht 157.5 cm; Wt 84.0 kg
--- NOTE | 2017-05-01 15:49 | RADRPT ---
PROCEDURE: XR Chest. CLINICAL INDICATION: cough, wheezing TECHNIQUE: Single frontal view of the chest was obtained COMPARISON: Chest radiograph dated August 29, 2016. FINDINGS: The heart and mediastinum are within normal limits. The lungs are clear. There is no pleural effusion or pneumothorax. Degenerative changes of the spine and shoulder joints are present. IMPRESSION: 1. No acute cardiopulmonary disease. RPTAT:AAJJ Fabricio Durant Physician Date Time Electronically viewed and signed by Fabricio Durant Physician on 05/01/2017 15:48 QL/
[2017-05-01] MEDS ORDERED: ALBU2.5V3 NEB (16:42)
[2017-05-01] MEDS ORDERED: DILTIAZEM 30 MG TAB PO STA (16:47)
[2017-05-01 17:24] VITALS: BP 155/82; PULSE 74; RESP 20; TEMP 98.7
--- NOTE | 2017-05-01 17:52 | ERD ---
ER Documentation Chief Complaint Chief Complaint ASTHMA EXACERBATION X 1 WEEK HPI This is a 61-year-old female presenting to emergency department for asthma exacerbation 1 week. Patient states she has history of asthma and was here about 3 weeks ago and requested refill of her nebulizer medication. Patient states she uses that at home as needed. Patient states she has intermittent cough with some wheezing. Patient is cough is worse at night. Nonproductive cough. no chest pain, chest pressure, shortness of breath or difficulty breathing. No leg swelling or leg pain. ROS All systems reviewed and are negative except as per history of present illness. Medications Home Meds Active Scripts Albuterol Sulfate* (Albuterol Sulfate* Neb) 0.083%-3 Ml Neb, 2.5 MG NEB Q4 Y for SHORTNESS OF BREATH, #30 EA Prov:JON VILLATORO NP 05/01/17 Azithromycin* (Zithromax*) 250 Mg Tablet, 250 MG PO .ZPACK DIRECTED, #6 TAB TAKE 500 MG (2 TABS) THE FIRST DAY THEN 250 MG (1 TAB) DAYS 2-5 Prov:KONG SADLER PA-C 04/09/17 Albuterol Sulfate* (Ventolin HFA*) 18 Gm Hfa.aer.ad, 2 PUFF INHALATION Q4H, #1 INHALER Prov:KONG SADLER PA-C 04/09/17 Albuterol Sulfate* (Albuterol Sulfate* Neb) 0.083%-3 Ml Neb, 2.5 MG NEB Q4 Y for SHORTNESS OF BREATH, #30 EA Prov:KONG SADLER PA-C 04/09/17 Diltiazem Hcl (DILTIAZEM 24HR CD) 180 Mg Cap.er.24h, 180 MG PO DAILY, #30 CAP Prov:KONG SADLER PA-C 04/09/17 Albuterol Sulfate* (Proair HFA*) 8.5 Gm Hfa.aer.ad, 2 PUFF INH Q4H Y for WHEEZING AND SOB, #1 INHALER Prov:EWA MACKENZIE MD 11/15/16 Prednisone* (Prednisone*) 20 Mg Tab, 60 MG PO DAILY for 5 Days, TAB Prov:EWA MACKENZIE MD 11/15/16 Guaifenesin-Codeine Phosphate* (Robitussin* AC) 5 Ml Syrup, 10 ML PO Q6H Y for COUGH, #120 ML Prov:EWA MACKENZIE MD 11/15/16 Levofloxacin* (Levaquin*) 750 Mg Tablet, 750 MG PO DAILY for 5 Days, TAB Prov:EWA MACKENZIE MD 11/15/16 Acetaminophen* (Tylenol*) 500 Mg Tab, 500 MG PO Q4H Y for MILD PAIN LEVEL 1-3 for 3 Days, TAB Prov:CRISTIANE MOORE 11/09/16 Diltiazem Hcl* (Diltiazem XT) 180 Mg Capsule.er, 180 MG PO DAILY, #90 CAP Prov:CRISTIANE MOORE 11/09/16 Mometasone Furoate* (Nasonex*) 50 Mcg/[place] - 17 Gm [place].pump, 2 SPRAY NASAL BID, #1 BOTTLE TO EACH NOSTRIL Prov:CRISTIANE MOORE 11/09/16 Levofloxacin* (Levaquin*) 750 Mg Tablet, 750 MG PO DAILY for 5 Days, TAB Prov:CRISTIANE MOORE 11/09/16 Ibuprofen* (Motrin*) 600 Mg Tab, 600 MG PO Q6H Y for PAIN AND OR ELEVATED TEMP, #30 TAB Prov:FOUZIA LIANG NP 09/08/16 Amoxicillin* (Amoxicillin*) 500 Mg Cap, 500 MG PO TID for 10 Days, CAP Prov:FOUZIA LIANG NP 09/08/16 Albuterol Sulfate* (Albuterol Sulfate* Neb) 0.083%-3 Ml Neb, 2.5 MG NEB Q4 Y for SHORTNESS OF BREATH, #30 EA Prov:FOUZIA LIANG NP 09/08/16 Prednisone* (Prednisone*) 50 Mg Tablet, 50 MG PO DAILY, #5 TAB Prov:FOUZIA LIANG NP 08/29/16 Cetirizine Hcl* (Zyrtec*) 10 Mg Capsule, 10 MG PO DAILY, #30 TAB.CHEW Prov:FOUZIA LIANG NP 08/29/16 Rpsnclbkrch-L-Ipadsuptzq Hb* (Guaifenesin* DM Syrup) 120 Ml Syrup, 10 ML PO Q4H Y for COUGH, #120 ML Prov:FOUZIA LIANG INCOME TAX RETURN PREPARER 08/29/16 Albuterol Sulfate* (Proair HFA*) 8.5 Gm Hfa.aer.ad, 2 PUFF INH Q4H Y for WHEEZING AND SOB, #1 INHALER Prov:GARTHFOUZIA INCOME TAX RETURN PREPARER 08/29/16 Diltiazem Hcl* (Cardizem CD*) 180 Mg Cap.sr.24h, 180 MG PO DAILY, #60 CAP Prov:SANTHOSH REDD 03/05/15 Albuterol Sulfate* (Proair HFA*) 8.5 Gm Hfa.aer.ad, 2 PUFF INH Q4 Y for SHORTNESS OF BREATH for 30 Days, INH Prov:CHRISTY MALDONADO INCOME TAX RETURN PREPARER 05/28/14 Reported Medications Diltiazem Hcl* (Tiazac) 180 Mg Capsule.sa, 180 MG PO DAILY, CAP 02/28/15 Allergies Allergies: Coded Allergies: No Known Drug Allergies (Verified Allergy, Unknown, 08/29/16) PMhx/Soc History of Surgery: Yes () Anesthesia Reaction: No Hx Neurological Disorder: No Hx Respiratory Disorders: Yes (Asthma) Hx Cardiac Disorders: Yes (HTN, Palpitations) Hx Psychiatric Problems: No Hx Miscellaneous Medical Probl: No Hx Alcohol Use: No Hx Substance Use: No Hx Tobacco Use: No Physical Exam Vitals Vital Signs Date Time Temp Pulse Resp B/P Pulse Ox O2 Delivery O2 Flow Rate FiO2 05/01/17 17:24 98.7 74 20 155/82 98 Room Air 05/01/17 13:12 88.0 83 22 170/83 98 Physical Exam Const: No acute distress, alert Head: Atraumatic Eyes: Normal Conjunctiva ENT: Normal External Ears, Nose and Mouth. Neck: Full range of motion..~ No meningismus. Resp: Clear to auscultation bilaterally. No wheezing, rhonchi or crackles. No stridor or labored breathing. No intercostal retractions. Patient is talking in complete sentences. Cardio: Regular rate and rhythm, no murmurs Abd: Soft, non tender, non distended. Normal bowel sounds Skin: No petechiae or rashes Back: No midline or flank tenderness Ext: No cyanosis, or edema Neur: Awake and alert Psych: Normal Mood and Affect Results 24 hrs Current Medications Medications (Trade) Dose Ordered Sig/Ed Route PRN Reason Start Time Stop Time Status Last Admin Dose Admin Diltiazem HCl (Cardizem) 30 mg ONCE STAT PO 05/01/17 16:47 05/01/17 16:49 DC 05/01/17 17:19 Procedures/MDM Patient: BEAR GUTHRIE : 1955 Age: 61 Sex: F MR #: [id number] DOS: 05/01/17 1513 Ordering MD: JON MARTIN NP Location: [facility] Room/Bed: PROCEDURE: XR Chest. CLINICAL INDICATION: cough, wheezing TECHNIQUE: Single frontal view of the chest was obtained COMPARISON: Chest radiograph dated August 29, 2016. FINDINGS: The heart and mediastinum are within normal limits. The lungs are clear. There is no pleural effusion or pneumothorax. Degenerative changes of the spine and shoulder joints are present. IMPRESSION: 1. No acute cardiopulmonary disease. EKG: As interpreted by myself and Dr. Fox Rate/Rhythm: Sinus rhythm with heart rate 67 bpm. No STEMI. MDM: This is a 61-year-old female presenting to emergency department for refill of nebulizer medication. Patient is afebrile. Patient's blood pressure upon arrival to ED is 170/83 mmHg and patient states she takes diltiazem usually at night. Patient given dose of diltiazem while in the ED and a pressure reduced. Chest x-ray reviewed by radiologist as unremarkable. EKG shows normal sinus rhythm with heart rate 67 bpm. No STEMI. Patient is alert and oriented throughout ED visit. Appears nontoxic and well appearing. Patient is not hypoxic. Low suspicion for pneumonia, pleural effusion, pneumothorax or acute NH. Differential diagnosis includes but not limited to URI, influenza, otitis media , otitis externa, asthma exacerbation, croup, bronchitis, bronchiolitis and costochondritis. Patient is appropriate for outpatient management and will be given prescription for albuterol nebulizer solution. Instructed patient to follow-up with primary care provider in the next 2-3 days for reassessment and additional management. Return to ED for any high fever, chest pain, difficulty breathing, shortness breath, wheezing, vomiting, diarrhea, abdominal pain or any new or worsening symptoms. Patient verbalizes understanding. All questions answered at discharge. Disclaimer: Inadvertent spelling and grammatical errors are likely due to EHR/ dictation software use and do not reflect on the overall quality of patient care. Also, please note that the electronic time recorded on this note does not necessarily reflect the actual time of the patient encounter. Departure Diagnosis: Primary Impression: Asthma Asthma severity: unspecified severity Asthma persistence: unspecified Asthma complication type: unspecified Qualified Code: J45.909 - Asthma, unspecified asthma severity, unspecified whether complicated, unspecified whether persistent Condition: Stable Patient Instructions: Asthma, Acute (Adult) Referrals: [facility] YOU HAVE RECEIVED A MEDICAL SCREENING EXAM AND THE RESULTS INDICATE THAT YOU DO NOT HAVE A CONDITION THAT REQUIRES URGENT TREATMENT IN THE EMERGENCY DEPARTMENT. FURTHER EVALUATION AND TREATMENT OF YOUR CONDITION CAN WAIT UNTIL YOU ARE SEEN IN YOUR DOCTORS OFFICE WITHIN THE NEXT 1-2 DAYS. IT IS YOUR RESPONSIBILITY TO MAKE AN APPOINTMENT FOR FOLOW-UP CARE. IF YOU HAVE A PRIMARY DOCTOR --you should call your primary doctor and schedule an appointment IF YOU DO NOT HAVE A PRIMARY DOCTOR YOU CAN CALL OUR PHYSICIAN REFERRAL HOTLINE AT IF YOU CAN NOT AFFORD TO SEE A PHYSICIAN YOU CAN CHOSE FROM THE FOLLOWING [facility] [address] [facility]. [facility] [address] [facility]. [facility] [address] [facility] [facility] [address] [facility]. [facility] [address] [facility] [facility]. [address] [facility] YOU HAVE RECEIVED A MEDICAL SCREENING EXAM AND THE RESULTS INDICATE THAT YOU DO NOT HAVE A CONDITION THAT REQUIRES URGENT TREATMENT IN THE EMERGENCY DEPARTMENT. FURTHER EVALUATION AND TREATMENT OF YOUR CONDITION CAN WAIT UNTIL YOU ARE SEEN IN YOUR DOCTORS OFFICE WITHIN THE NEXT 1-2 DAYS. IT IS YOUR RESPONSIBILITY TO MAKE AN APPOINTMENT FOR FOLOW-UP CARE. IF YOU HAVE A PRIMARY DOCTOR --you should call your primary doctor and schedule and appointment IF YOU DO NOT HAVE A PRIMARY DOCTOR YOU CAN CALL OUR PHYSICIAN REFERRAL HOTLINE AT . IF YOU CAN NOT AFFORD TO SEE A PHYSICIAN YOU CAN CHOSE FROM THE FOLLOWING [facility] INSTITUTIONS: [facility] [address] [place] [address] [facility] [address] [place] [address] [facility] [address] [place] [address] Additional Instructions: Call your primary care doctor TOMORROW for an appointment during the next 2-3 days.See the doctor sooner or return here if your condition worsens before your appointment time. Return to ED for any high fever, chest pain, difficulty breathing, shortness breath, wheezing, vomiting, diarrhea, abdominal pain or any new or worsening symptoms. JON VILLATORO NP May 01, 2017 17:52
== END 2017-05-01 17:24 | disposition home or self-care (01) ==
LOC: FTE 13:07
DX: J45.909 Unspecified asthma, uncomplicated (principal); I10 Essential (primary) hypertension
CPT/HCPCS: 71010; 93005; Z7502; Z7610

== ENCOUNTER 2017-05-22 12:08 | Emergency (ER) | payer MEDICAID ==
[~2017-05-22] VITALS: Ht 152.4 cm; Wt 82.1 kg
[2017-05-22 12:09] VITALS: Ht 152.4 cm; Wt 82.1 kg
[2017-05-22] MEDS ORDERED: ALBUTEROL 0.5% (NEB) 2.5 MG/0.5 ML AMP INH STA (12:19)
[2017-05-22] MEDS ORDERED: IPRATROPIUM (NEB) 0.5 MG/2.5 ML AMP NEB STA (12:19)
--- NOTE | 2017-05-22 12:28 | ERD ---
ER Documentation Chief Complaint Chief Complaint asthma attack HPI 61-year-old female, history of asthma presents to the emergency room with shortness of breath and wheezing after running out of her medication. Her regular medications including albuterol solution as well as the inhaler, she ran out of this a few days ago. She describes chest tightness, wheezing and shortness of breath most consistent with her usual asthma symptoms. She states that she does not have a regular doctor. She denies chest pain at this time otherwise. ROS All systems reviewed and are negative except as per history of present illness. Medications Home Meds Active Scripts Albuterol Sulfate* (Albuterol Sulfate* Neb) 0.083%-3 Ml Neb, 2.5 MG NEB Q4 Y for SHORTNESS OF BREATH, #30 EA Prov:MITZI GRANDA PA-C 05/22/17 Cetirizine Hcl* (Zyrtec*) 10 Mg Capsule, 10 MG PO DAILY, #60 TAB.CHEW Prov:MITZI GRANDA PA-C 05/22/17 Mometasone Furoate* (Nasonex*) 50 Mcg/[place] - 17 Gm [place].pump, 1 SPRAY NASAL BID, #1 BOTTLE IN EACH NOSTRIL Prov:MITZI GRANDA PA-C 05/22/17 Prednisone* (Prednisone*) 20 Mg Tab, 40 MG PO DAILY for 4 Days, TAB Prov:MITZI GRANDA PA-C 05/22/17 Albuterol Sulfate* (Proair HFA*) 8.5 Gm Hfa.aer.ad, 2 PUFF INH Q4, #1 INHALER Prov:MITZI GRANDA PA-C 05/22/17 Albuterol Sulfate* (Albuterol Sulfate* Neb) 0.083%-3 Ml Neb, 2.5 MG NEB Q4 Y for SHORTNESS OF BREATH, #30 EA Prov:MITZI GRANDA PA-C 05/22/17 Albuterol Sulfate* (Albuterol Sulfate* Neb) 0.083%-3 Ml Neb, 2.5 MG NEB Q4 Y for SHORTNESS OF BREATH, #30 EA Prov:JON VILLATORO NP 05/01/17 Azithromycin* (Zithromax*) 250 Mg Tablet, 250 MG PO .SoheilaPACK DIRECTED, #6 TAB TAKE 500 MG (2 TABS) THE FIRST DAY THEN 250 MG (1 TAB) DAYS 2-5 Prov:KONG SADLER PA-C 04/09/17 Albuterol Sulfate* (Ventolin HFA*) 18 Gm Hfa.aer.ad, 2 PUFF INHALATION Q4H, #1 INHALER Prov:KONG SADLER PA-C 04/09/17 Albuterol Sulfate* (Albuterol Sulfate* Neb) 0.083%-3 Ml Neb, 2.5 MG NEB Q4 Y for SHORTNESS OF BREATH, #30 EA Prov:KONG SADLER PA-C 04/09/17 Diltiazem Hcl (DILTIAZEM 24HR CD) 180 Mg Cap.er.24h, 180 MG PO DAILY, #30 CAP Prov:KONG SADLER PA-C 04/09/17 Albuterol Sulfate* (Proair HFA*) 8.5 Gm Hfa.aer.ad, 2 PUFF INH Q4H Y for WHEEZING AND SOB, #1 INHALER Prov:EWA MACKENZIE MD 11/15/16 Prednisone* (Prednisone*) 20 Mg Tab, 60 MG PO DAILY for 5 Days, TAB Prov:EWA MACKENZIE MD 11/15/16 Guaifenesin-Codeine Phosphate* (Robitussin* AC) 5 Ml Syrup, 10 ML PO Q6H Y for COUGH, #120 ML Prov:EWA MACKENZIE MD 11/15/16 Levofloxacin* (Levaquin*) 750 Mg Tablet, 750 MG PO DAILY for 5 Days, TAB Prov:EWA MACKENZIE MD 11/15/16 Acetaminophen* (Tylenol*) 500 Mg Tab, 500 MG PO Q4H Y for MILD PAIN LEVEL 1-3 for 3 Days, TAB Prov:CRISTIANE MOORE 11/09/16 Diltiazem Hcl* (Diltiazem XT) 180 Mg Capsule.er, 180 MG PO DAILY, #90 CAP Prov:CRISTIANE MOORE 11/09/16 Mometasone Furoate* (Nasonex*) 50 Mcg/[place] - 17 Gm [place].pump, 2 SPRAY NASAL BID, #1 BOTTLE TO EACH NOSTRIL Prov:CRISTIANE MOORE 11/09/16 Levofloxacin* (Levaquin*) 750 Mg Tablet, 750 MG PO DAILY for 5 Days, TAB Prov:CRISTIANE MOORE 11/09/16 Ibuprofen* (Motrin*) 600 Mg Tab, 600 MG PO Q6H Y for PAIN AND OR ELEVATED TEMP, #30 TAB Prov:FOUZIA LIANG NP 09/08/16 Amoxicillin* (Amoxicillin*) 500 Mg Cap, 500 MG PO TID for 10 Days, CAP Prov:FOUZIA LIANG NP 09/08/16 Albuterol Sulfate* (Albuterol Sulfate* Neb) 0.083%-3 Ml Neb, 2.5 MG NEB Q4 Y for SHORTNESS OF BREATH, #30 EA Prov:FOUZIA LIANG NP 09/08/16 Prednisone* (Prednisone*) 50 Mg Tablet, 50 MG PO DAILY, #5 TAB Prov:FOUZIA LIANG NP 08/29/16 Cetirizine Hcl* (Zyrtec*) 10 Mg Capsule, 10 MG PO DAILY, #30 TAB.CHEW Prov:FOUZIA LIANG NP 08/29/16 Buupodyuxyp-K-Jaqvoaeyfe Hb* (Guaifenesin* DM Syrup) 120 Ml Syrup, 10 ML PO Q4H Y for COUGH, #120 ML Prov:FOUZIA LIANG NP 08/29/16 Albuterol Sulfate* (Proair HFA*) 8.5 Gm Hfa.aer.ad, 2 PUFF INH Q4H Y for WHEEZING AND SOB, #1 INHALER Prov:FOUZIA LIANG NP 08/29/16 Diltiazem Hcl* (Cardizem CD*) 180 Mg Cap.sr.24h, 180 MG PO DAILY, #60 CAP Prov:SANTHOSH REDD 03/05/15 Albuterol Sulfate* (Proair HFA*) 8.5 Gm Hfa.aer.ad, 2 PUFF INH Q4 Y for SHORTNESS OF BREATH for 30 Days, INH Prov:CHRISTY MALDONADO NP 05/28/14 Reported Medications Diltiazem Hcl* (Tiazac) 180 Mg Capsule.sa, 180 MG PO DAILY, CAP 02/28/15 Allergies Allergies: Coded Allergies: No Known Drug Allergies (Verified Allergy, Unknown, 08/29/16) PMhx/Soc History of Surgery: Yes () Anesthesia Reaction: No Hx Neurological Disorder: No Hx Respiratory Disorders: Yes (Asthma) Hx Cardiac Disorders: Yes (HTN, Palpitations) Hx Psychiatric Problems: No Hx Miscellaneous Medical Probl: No Hx Alcohol Use: No Hx Substance Use: No Hx Tobacco Use: No Smoking Status: Never smoker Physical Exam Vitals Vital Signs Date Time Temp Pulse Resp B/P Pulse Ox O2 Delivery O2 Flow Rate FiO2 05/22/17 12:30 86 26 96 21 05/22/17 12:09 98.2 86 26 138/80 96 Physical Exam General: Well-developed, well-nourished. The patient appears in no acute distress. HEENT: Head is normocephalic, atraumatic. No scleral icterus. Neck: Supple. Nontender. Lungs: Speaking in full sentences, patient is nonlabored, there is wheezing upon expiration and inspiration on auscultation. There are no crackles, rales. Heart: Regular rate and rhythm. S1 and S2 are normal. No murmurs, gallops, or rubs. Abdomen: Nondistended. Extremities: No clubbing or cyanosis. Moving extremities x 4. No weakness. Neurologic: Alert and oriented 3. No focal deficits. Normal speech and gait. Skin: Normal turgor. No rash or lesions. Results 24 hrs Current Medications Medications (Trade) Dose Ordered Sig/Ed Route PRN Reason Start Time Stop Time Status Last Admin Dose Admin Ipratropium Delaplane (Atrovent 0.02% (Neb)) 1.5 mg ONCE STAT NEB 05/22/17 12:19 05/22/17 12:22 DC 05/22/17 12:29 Albuterol (Proventil 0.5% (Neb)) 10 mg ONCE STAT INH 05/22/17 12:19 05/22/17 12:22 DC 05/22/17 12:29 Methylprednisolone Sodium Succinate (Solu-Medrol) 125 mg ONCE ONCE IM 05/22/17 12:30 05/22/17 12:31 DC 05/22/17 12:28 Procedures/MDM ED COURSE: Patient was given Solu-Medrol 125 mg IM, she was given albuterol 10 mg and Atrovent 1.5 mg continuous. MEDICAL DECISION MAKIN-year-old female who ran out of her medications comes in with asthma, she presents with exacerbation with wheezing but no acute hypoxia. Patient's symptoms were alleviated with albuterol, Atrovent and she was observed in the emergency department and states that she is feeling significantly better. She did not express any hypoxia, she is not showing signs of respiratory distress. She will be given refills of her medications, and is stable for discharge. Departure Diagnosis: Primary Impression: Asthma exacerbation Condition: Good MITZI GRANDA PA-C May 22, 2017 12:28
[2017-05-22] MEDS ORDERED: METHYLPREDNISOLONE 125 MG INJ IM ONE (12:30)
[2017-05-22] MEDS ORDERED: NASO17 NASAL (14:10)
[2017-05-22] MEDS ORDERED: ALBU8.5H3 INH (14:10)
[2017-05-22] MEDS ORDERED: PRED20TA PO (14:10)
[2017-05-22] MEDS ORDERED: CETI10CA PO (14:10)
[2017-05-22] MEDS ORDERED: ALBU2.5V3 NEB (14:10)
== END 2017-05-22 14:27 | disposition home or self-care (01) ==
LOC: FTE 12:08
DX: J45.901 Unspecified asthma with (acute) exacerbation (principal); I10 Essential (primary) hypertension
CPT/HCPCS: 94644; 96372; J2930; Z7502; Z7610

== ENCOUNTER 2017-09-24 21:23 | Emergency (ER) | END 2017-09-25 00:38 | disposition home or self-care (01) ==

== ENCOUNTER 2017-10-07 18:44 | Emergency (ER) | END 2017-10-07 21:39 | disposition home or self-care (01) ==

== ENCOUNTER 2017-10-16 11:05 | Emergency (ER) | END 2017-10-16 14:05 | disposition home or self-care (01) ==

== ENCOUNTER 2017-11-03 23:35 | Emergency (ER) | END 2017-11-04 03:48 | disposition home or self-care (01) ==

== ENCOUNTER 2018-02-05 05:12 | Emergency (ER) | END 2018-02-05 08:21 | disposition home or self-care (01) ==